=== PATIENT | female | born 1945 | race Caucasian/White ===

== ENCOUNTER → 2016-12-01 | Outpatient (CLI) | payer OTHER ==
--- NOTE | 2016-12-01 17:06 | DX ---
Bilateral knee series 3 views each 1455 hours. History colon polyarthralgia. Assess for degenerative change. Findings: Right knee: There is moderate chondrocalcinosis knee joint and patellofemoral joint. There is mild me dial compartment knee joint space narrowing with small medial osteophytes. There are no intra-articul ar calcific fragments appreciated. There is no significant effusion in the suprapatella bursa. On micheal chant view obtained there is no subluxation of the patella. There is relative shallow patellofemoral groove which could predispose to subluxation or dislocation. This is symmetric. Osteophytes are prese nt at the patellofemoral joint. Left knee: There is moderate symmetric chondrocalcinosis knee joint and patellofemoral joint. There is mild medial compartment knee joint space narrowing with small medial osteophytes. There are no int ra-articular calcific fragments appreciated. There is no significant effusion in the suprapatella bur sa. On merchant view obtained there is no subluxation of the patella. There is relative shallow vaughn lofemoral groove which could predispose to subluxation or dislocation. This is symmetric. Osteophytes are present at the patellofemoral joint. Impression: 1. Symmetric bilateral chondrocalcinosis at the knee joint and patellofemoral joint. This can be seen with pyrophosphate arthropathy versus osteoarthritis or idiopathic. Clinical correlation recommended . 2. Mild medial compartment knee joint space narrowing bilaterally with small medial osteophytes. 3. Shallow patellofemoral groove that can predispose to subluxation of the patella bilaterally or pos sibly dislocation.
--- NOTE | 2016-12-01 17:09 | DX ---
Right Ankle, Three Views Left Ankle, Three Views December 01, 2016, 1502 Hours Clinical Indication: Polyarthralgia. Findings Right Foot: There are mild arthritic changes at the tibiotalar joint, talonavicular and calcaneocuboi d joints. Mild arthritic changes of the cuneiforms. No significant soft tissue swelling. Impression: Mild osteoarthritis of the right ankle. Left Foot: There are mild arthritic changes of the tibiotalar joint. There are mild arthritic changes of the talonavicular, calcaneocuboid, and cuneiform joints in the midfoot. Soft tissues are unremark able. Impression: Mild osteoarthritis of the left ankle.
--- NOTE | 2016-12-01 17:21 | DX ---
Left Foot, Three Views Right Foot, Three Views December 01, 2016, 1507 Hours Clinical Indication: Polyarthralgias. Findings Right Foot: There is joint space narrowing with sclerosis at the first MTP joint, and 2nd through 5th PIP and DIP joints. Mild midfoot arthritis is present. Impression: Right foot osteoarthritis. Left Foot: In a similar pattern of distribution but less severe joint space narrowing and sclerosis o f the first MTP joint, the 2nd through 5th PIP joints, and mild midfoot arthritic changes. Impression: Osteoarthritis of the left foot.
--- NOTE | 2016-12-01 17:38 | DX ---
Bilateral hand series 3 views each. History: Polyarthralgia. Assess for degenerative change. Findings: Left hand: Moderate degenerative changes are noted at the first carpometacarpal joint with subchondra l cystic change, sclerosis, osteophytes, and subluxation. Mild degenerative changes are also noted at the trapezium navicular joint with joint space narrowing. The remainder the joint spaces are relativ sudhir normal. No erosions are seen or subluxations. Mineralization is normal. Soft tissues are unremark able. Right hand: Moderate degenerative changes are noted at the first carpometacarpal joint with subchond ral cystic change, sclerosis, osteophytes, and subluxation. Mild degenerative changes are also noted at the trapezium navicular joint with joint space narrowing. The remainder the joint spaces are relat ively normal. No erosions are seen or subluxations. Mineralization is normal. Soft tissues are unrema rkable. Impression: Symmetric degenerative changes at the first carpometacarpal joint and trapezium navicular joint bilaterally. Findings are compatible with underlying osteoarthritis.
== END ==
LOC: BRMIMAGING 14:33
PROVIDERS: ATTEND Internal Medicine
DX: M19.041 Primary osteoarthritis, right hand (principal); M19.042 Primary osteoarthritis, left hand; M19.071 Primary osteoarthritis, right ankle and foot; M19.072 Primary osteoarthritis, left ankle and foot; M11.261 Other chondrocalcinosis, right knee; M11.262 Other chondrocalcinosis, left knee; M25.762 Osteophyte, left knee; M25.761 Osteophyte, right knee
CPT/HCPCS: 73130-PO; 73562-PO; 73610-PO; 73630-PO

== ENCOUNTER → 2016-12-20 | Outpatient (CLI) | payer OTHER ==
--- NOTE | 2016-12-20 12:10 | MA ---
Screening Digital Mammogram With Tomosynthesis Clinical Indications: Routine screening. Technique: Standard digital cephalocaudal and tomosynthesis mediolateral oblique projections are obt ained. The digital images were processed by the [employer] computer aided detection system. Comparison: January 2014 and October 2011 Breast density: B; There are scattered fibroglandular densities. Findings: CAD was reviewed. No suspicious findings are identified. Impression: Negative mammogram. BI-RADS 1. Recommendation: Routine screening is recommended in one year. [facility] will send a result letter to the patient. Negative mammography should not preclude additional workup of a clinically suspicious finding. The patient's information is entered into a reminder system with a target due date for her next mammo gram.
== END ==
LOC: FIMAGING 10:33
PROVIDERS: ATTEND Obstetrics & Gynecology
DX: Z12.31 Encounter for screening mammogram for malignant neoplasm of breast (principal)
CPT/HCPCS: G0202